=== PATIENT | male | born 1995 | race Two or more races ===

== ENCOUNTER 2016-12-21 17:13 | Inpatient (IN) | payer OTHER ==
[2016-12-21 17:56] LABS: Hematocrit 48 % (42-52); Hemoglobin 16.3 g/dl (14.0-18.0); Mean Corpuscular HGB Conc 34 g/dl (31-36); Mean Corpuscular Hemoglobin 30 pg (27-31); Mean Corpuscular Volume 87 fL (80-94); Mean Platelet Volume 10 um3 (7.4-10.4); Red Blood Count 5.44 10^6/ul (4.0-5.4); Red Cell Distribution Width 13 % (10.5-15); White Blood Count 9.1 10^3/ul (3.5-10.8)
[2016-12-21 17:57] LABS: Urine Bilirubin Negative (Negative); Urine Glucose Negative (Negative); Urine Nitrite Negative (Negative)
[2016-12-21 18:11] LABS: ALT 12 U/L (7-52); AST 16 U/L (13-39); Albumin 5.1 g/dL (3.2-5.2); Alkaline Phosphatase 57 U/L (34-104); Anion Gap 8 mmol/L (2-11); BUN/Creatinine Ratio 24.7 (8-20); Blood Urea Nitrogen 21 mg/dL (6-24); CO2 Carbon Dioxide 26 mmol/L (22-32); Calcium 10.3 mg/dL (8.6-10.3); Chloride 100 mmol/L (101-111); EGFR African American 143.7 (>60); EGFR Non-African American 111.7 (>60); Glucose 92 mg/dL (70-100); Potassium 3.3 mmol/L (3.5-5.0); Sodium 134 mmol/L (133-145); Total Protein 8.1 g/dL (6.4-8.9)
[2016-12-21 18:13] LABS: Benzodiazepine Urine Screen None Detected (None Detect)
[2016-12-21] MEDS ORDERED: Potassium Chlor TAB* 20 MEQ TAB.ER PO ONE (18:19)
[2016-12-21 18:32] LABS: Acetaminophen < 15 mcg/mL; Alcohol < 10 mg/dL (<10); Salicylate < 2.50 mg/dL (<30)
[2016-12-21 18:41] LABS: TSH (Thyroid Stimulating Horm) 1.59 mcIU/mL (0.34-5.60)
--- NOTE | 2016-12-21 21:41 | ED ---
Vashti Cody Matthew, scribed for Dre Manirque on 12/21/16 at 2138 . Progress - Progress Note Progress Note: The patient is a sign out from Dr. Garcia. The patient was evaluated by mental health and he will be admitted into their services. The patient is in stable condition and will be admitted to [facility] - Consult/PCP Time Called: 18:10 Course/Dx - Diagnoses Provider Diagnoses: Depression, Suicidal ideation The documentation as recorded by the Vashti rosado Matthew accurately reflects the service I personally performed and the decisions made by Burton cabrera Emmanuel.
[2016-12-21] MEDS ORDERED: Al Hydrox/Mg Hydrox/Simet LIQ* 30 ML UDC PO PRN (23:41)
[2016-12-21] MEDS ORDERED: Acetaminophen TAB* 325 MG PO PRN (23:41)
[2016-12-22] MEDS: Vitamin THERAPEUTIC TAB PO SCH (09:18)
--- NOTE | 2016-12-22 15:29 | ADMNOTE ---
Identification - Identify Employment Status: Student - [employer] senior. Hx Psychiatric Hospitalization: No Arrived to Hospital Via: Law Enforcement History - Objective HPI: 21 y/o [employer] student with no prior psychiatric history was brought to the ED from [facility] due to suicidal ideation with plans to jump off a bridge or slash his wrist. He has been stressed and overwhelmed at school due to multiple cultural things that he is involved. Also reported that he has been feeling sad ,down and helpless lately. Since last week cries for no reson or for little reason. Denies hallucinations or delusion. Has been drinking every weekend to a point of getting drunk. Exam Appearance: Thin Framed Hygiene: Normal Grooming: Well Kept Psychomotor Activities: Normal Exhibits Abnormal Movement: No Attitude and Relatedness: Manipulative Eye Contact: Fair - Speech Quality: Unpressured Latencies: Normal Quantity: Appropriate Patient's Decription of Mood: "Okay" Observed Affect: Depressed Affect Consistent with: Dysphoria Patient's Thought Process: Coherent, Goal Directed Thought Content: No Passive Wish, No Suicidal Planning, No Homicidal Ideation, No Paranoid Ideation Experiencing Hallucinations: No, Sensorium is Clear Type of Hallucinations: Visual: No, Auditory: No, Command: No Level of Consciousness: Alert Orientation: Yes Intact, Yes Orientated to Time, Yes Orientated to Place, Yes Orientated to Person Impulse Control: Tenuous Insight and Judgement: Poor Impression - Impression Merits Inpatient Hospitalization: Yes - [place] I Mental Illness: Depressive d/o NOS. Alcohol use d/o - [place] III Medical Illness: No Dx Plan - Treatment Plan Continued Medication Management: Consider Medication Medications: Current Medications Acetaminophen (Tylenol Tab*) 650 mg PO Q4H PRN PRN Reason: PAIN or TEMP > 101 F Al Hydrox/Mg Hydrox/Simethicone (Maalox Plus*) 30 ml PO Q4H PRN PRN Reason: INDIGESTION Multivitamins (Theragran Tab*) 1 tab PO DAILY CHERYL Last Admin: 12/22/16 09:18 Dose: Not Given - Discharge Plan Discharge Plan: Outpatient Follow Up Outpatient Program: Counseling/Psych Services at [place]
--- NOTE | 2016-12-22 22:04 | HP ---
HISTORY AND PHYSICAL: DATE OF ADMISSION: IDENTIFYING DATA: David is a 21-year-old [employer] student with no prior history of psychiatric hospitalization or treatment, came to the ED voluntarily with the help of law enforcement, referred to the ED by [facility] counselor, whom he went to see earlier during the day due to repeated thoughts of suicide with multiple plans. CHIEF COMPLAINT: "I have been overwhelmed with school works and other obligations at school as well." HISTORY OF PRESENT ILLNESS: David reports that he has been going through a lot of stress at school because of some social projects that he leads as well as his school work. He found himself to be overwhelmed with all those and could not talk about that with anybody which led to him feeling depressed, sad, occasional crying, lonely, and helpless. About a week ago, during the weekend, after having a green party and drinking alcohol when he was going back to his residence, he became suicidal and wanted to jump off the bridge which he was crossing. While contemplating to jump, somebody found him there and dissuaded him and brought him back to his residence. He talked about that with his roommates, who convinced him to go see a counselor at [facility]. Prior to that, he also thought about cutting his wrist with the kitchen knife to bleed to . He also is complaining that he has been having sleep disturbances intermittently. He has verbalized some ambivalence about suicide or self- harming behaviors during the interview today and trying to justify why he thought the way he thought and denies any current suicidal or homicidal thoughts. He also denies any hallucinations, delusions, or obsessions. PAST PSYCHIATRIC HISTORY: Unremarkable. PAST MEDICAL HISTORY: No physical health issues. ALLERGIES: No known drug allergies. SUBSTANCE ABUSE HISTORY: His main problem with substance abuse is drinking at least once during the weekend while he gets drunk. His preferred alcohol is wine, if he cannot find wine, he drinks at least a couple of beers. He denies any DTs or severe withdrawals or blackouts. In the past, he experimented with hashish, smoked pot, and other street drugs just for experimentation. FAMILY HISTORY: Unremarkable. He has two other brothers, both of them older than him, one lives in [place], other one in [facility]. His parents are well-off , lives in [place]. PERSONAL AND SOCIAL HISTORY: After graduating from [place], he moved to the [facility] to come to [facility] and is doing a undergrad in economics. He is on student visa and planning to obtain H-1B visa to work and maybe already has a job lined up in [place]. No significant relationships at this time. He has few friends. No family members in this area. PHYSICAL EXAMINATION Physical examination was offered, he was emotional and tearful at that time and wanted to defer it for future. However, he is not in any physical distress and I had a chance to review the physical done in the emergency room which is elaborate and insignificant. Everything appears to be in normal range. VITAL SIGNS: Blood pressure 148/70, pulse 73, respirations 18, temperature 99 degrees Fahrenheit, pulse ox 100%. MENTAL STATUS EXAMINATION: Average height, thin-framed, [place] male with fair personal hygiene and grooming, makes good eye contact. Speech is normal in all spheres. Describes his mood as sad. Observed affect appears to be dysphoric and became tearful during the interview. Thought process is logical and goal directed. Thought content is devoid of any delusions, obsessions, and current suicidal or homicidal ideations. Intelligence appears to be average as evidenced by his vocabulary and fund of knowledge. Memory functions are intact in all spheres. Insight and judgment poor. LABORATORY DATA: Labs included CBC with differential, CMP, urinalysis, urine drug scan. WBC 9.1, hemoglobin 16.3, hematocrit 48, MCV 87, platelet count 208. Rest of parameters are within normal limits. Comprehensive metabolic profile shows sodium level of 134; potassium 3.3, slightly lower than normal; chloride 100, which is lower than normal; carbon dioxide 26; BUN 21; creatinine 0.85; GFR 143.7, for non- ,101.7 ( C[place]ro). AST 16, ALT 12. Urinalysis unremarkable. Urine drug screen nothing remarkable, all street drugs were negative. Tox screen, negative. CLINICAL SUMMARY: This 21-year-old [employer] Student with no prior history of psychiatric treatment or diagnosis, regular drinking habits, especially on weekends, overwhelmed with school works as well as cultural works at school became more overwhelmed to a point that he showed some symptoms of depression as well as suicidal ideations with plans. He is not on any treatment or any therapy currently. MENTAL HEALTH DIAGNOSES: 1. Adjustment disorder. 2. Depressed mood, rule out major depressive disorder. PHYSICAL HEALTH DIAGNOSIS: None. TREATMENT PLAN: First of all, we will keep him on involuntary basis for his safety, further evaluation, and treatment plans. Supportive milieu, individual , and group therapy will be initiated and encouraged. He will benefit from treatment with antidepressant. However, at this time, he is declining any offer , although I described different medications with risks, benefits, and alternatives. I would defer the final decision to his assigned psychiatrist on the unit. He also will benefit from at best outpatient drug and alcohol rehab here as well as on an outpatient basis when he is discharged. His family involvement will be crucial in this situation to stop further escalation of his alcohol use. [id number]/CPS #: [id number] ZURDO
[2016-12-23] MEDS: Vitamin THERAPEUTIC TAB PO SCH (09:23)
[2016-12-24] MEDS: Vitamin THERAPEUTIC TAB PO SCH (10:29)
[2016-12-24] MEDS ORDERED: Nicotine Inhaler* 10 MG AMP INH PRN (11:18)
--- NOTE | 2016-12-24 11:18 | PN ---
Subjective - Subjective Service Type: 32735 Hosp care 15 min low complexity Subjective: David reports having only had SI on 2 occasions: (1) On SaturdayDecember 15 when walking over the [place] bridge he contemplated jumping for less than 1 minute when on his way home from a constitution party in [facility], and (2) in the tennis court attendant hours on SaturdayDecember 21, after he had asked roommates to please be quiet so he could get to sleep around 2:30 am, having been up late after a nap earlier that afternoon or evening, he felt isolated and unable to speak with them or other friends or family about the stress he was feeling in his responsibilities as senior class president at [employer] and some other obligations, so contemplated cutting his throat as a means of suicide to escape the feeling of isolation and perhaps also these responsibilities. He is adamant that these were the only 2 times he has ever thought about suicide. He denies any thoughts to harm others. He denies any constellation of depressive symptoms beyond these 2 episodes of SI and feeling isolated when wanting to talk openly about his problems. 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 He prefers his parents not be contacted for fear they will spend $5,000 to needlessly fly here. He agrees to contact with his 30 year-old brother Braulio, his female friend Shreyas, and the therapist he saw at [facility], Abigail Brantley. He has asked for use of his cell phone to call his mother daily for 10 minutes. He has asked to be able to use his laptop to keep up with schoolwork. He says he is only taking 12 credit hours of work and does not feel undue stress from that. He agrees to complete an MMPI. He declines initiating antidepressant medications, which is reasonable given his current clinical picture, which is of a severe stress reaction and not of a mood disorder or other more chronic psychiatric illness. Objective - Appearance Appearance: Healthy Appearing Dysmorphic Features: No Hygiene: Normal Grooming: Well Kept - Behavior Psychomotor Activities: Normal Exhibits Abnormal Movement: No - Attitude and Relatedness Attitude and Relatedness: Well Related Eye Contact: Good - Speech Quality: Unpressured Latencies: Normal Quantity: Appropriate - Mood Patient's Decription of Mood: "Okay" - Affect Observed Affect: Fair Affect Consistent with: Euthymia - Thought Process Patient's Thought Process: Coherent, Goal Directed Thought Content: No Passive Wish, No Suicidal Planning, No Homicidal Ideation, No Paranoid Ideation - Sensorium Experiencing Hallucinations: No, Sensorium is Clear Type of Hallucinations: Visual: No, Auditory: No, Command: No - Level of Consciousness Level of Consciousness: Alert Orientation: Yes Intact, Yes Orientated to Time, Yes Orientated to Place, Yes Orientated to Person - Impulse Control Impulse Control: Intact - Insight and Judgement Insight and Judgement: Fair - Group Participation Particating in Group Activities: No - Medication Management Medication Management Adherence: Yes Assessment - Assessment Merits Inpatient Hospitalization: For Immediate Safety, For Ongoing Evaluation, For Discharge Planning, Pending Safe DC Plan Inpatient DSM-IV Dx: Suicidal Ideation. Adjustment disorder with disturbance of mood. 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 He is from [place]. He reports 2 episodes of SI leading to voluntary assessment at [facility], now assessment here to ensure his safety. He does not give report of depressive or other symptoms beyond those captured by diagnosis with adjustment disorder. He does drink to excess regularly in what he sees as a more or less culturally normative pattern of a senior at [employer], and he denies any hindrance to social or educational responsibilities from alcohol, though notably he had his first episode of SI after drinking at a constitution party. He has declined trial of antidepressant, which per no psychiatric history and denial of depressive symptoms beyond episodic mood disturbance with SI related to feeling isolated from social support is a reasonable choice at this point. He has agreed to gathering collateral report from brother Braulio, friend Shreyas, and crisis counselor at [facility] Abigail Brantley. If collateral and psychological testing does not indicate previously unreported dangerousness, we plan to discharge back to care at [facility] tomorrow. Plan - Plan Treatment Plan: Name: DAVID [place] Birthdate: 1995 [id number] Gather collateral. Monitor MS and safety. MMPI. Encourage groups and milieu. Medications: Current Medications Acetaminophen (Tylenol Tab*) 650 mg PO Q4H PRN PRN Reason: PAIN or TEMP > 101 F Al Hydrox/Mg Hydrox/Simethicone (Maalox Plus*) 30 ml PO Q4H PRN PRN Reason: INDIGESTION Multivitamins (Theragran Tab*) 1 tab PO DAILY CHERYL Last Admin: 12/24/16 10:29 Dose: Not Given - Discharge Plan Discharge Plan: Outpatient Follow Up Outpatient Program: Counseling/Psych Services at [employer]
[2016-12-24] MEDS ORDERED: Mouth Piece, Nicotine* 1 EACH CARTRIDGE INH ONE (11:25)
[2016-12-25] MEDS: Vitamin THERAPEUTIC TAB PO SCH (09:21)
[2016-12-25 09:54] VITALS: BP 132/70
--- NOTE | 2016-12-25 10:44 | DS ---
Subjective - Subjective Service Types: 23570 [facility] Day [facility]mt simple under 30 min Discharge Date: 12/25/16 Subjective: Collateral sources were contacted by the treatment team. We spoke with his friend Porsche, his brother Braulio, and his therapist at [facility] Abigail Brantley. All agreed that David's reports of dangerousness were limited to 2 episodes of thinking of suicide. He has reported that he has not had thoughts of suicide before or after these 2 brief episodes. He reports that he has never developed any intention to act on these plans. He asks for discharge today, had been agreeable to continued observation and psychological testing prior to discharge. He reports feeling 'happy' and denies any dangerous intent or plan or any psychotic symptoms, as he has throughout his hospitalization. He has no physical complaints. Objective - Appearance Appearance: Healthy Appearing Dysmorphic Features: No Hygiene: Normal Grooming: Well Kept - Behavior Psychomotor Activities: Normal Exhibits Abnormal Movement: No - Attitude and Relatedness Attitude and Relatedness: Well Related Eye Contact: Good - Speech Quality: Unpressured Latencies: Normal Quantity: Appropriate - Mood Patient's Decription of Mood: "Happy" - Affect Observed Affect: Good Affect Consistent with: Euthymia - Thought Process Patient's Thought Process: Coherent, Goal Directed Thought Content: No Passive Wish, No Suicidal Planning, No Homicidal Ideation, No Paranoid Ideation - Sensorium Experiencing Hallucinations: No, Sensorium is Clear Type of Hallucinations: Visual: No, Auditory: No, Command: No - Level of Consciousness Level of Consciousness: Alert Orientation: Yes Intact, Yes Orientated to Time, Yes Orientated to Place, Yes Orientated to Person - Impulse Control Impulse Control: Intact - Insight and Judgement Insight and Judgement: Good - Group Participation Particating in Group Activities: Yes - Medication Management Medication Management Adherence: Yes - although has declined antidepressant trial Treatment Course & Assessment Clinical Course & Impression: David is a 21 year-old single man, a senior at [employer], 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 He is from [place]. He reports 2 episodes of SI leading to voluntary assessment at [facility], now assessment here to ensure his safety. He does not give report of depressive or other symptoms beyond those captured by diagnosis with adjustment disorder. He does drink to excess regularly in what he sees as a more or less culturally normative pattern of a senior at [employer], and he denies any hindrance to social or educational responsibilities from alcohol, though notably he had his first episode of SI after drinking at a republican. He has declined trial of antidepressant, which per no psychiatric history and denial of depressive symptoms beyond episodic mood disturbance with SI related to feeling isolated from social support is a reasonable choice at this point. He has agreed to gathering collateral report from brother Braulio, friend Shreyas, and crisis counselor at [facility] Abigail Brantley. If collateral and psychological testing does not indicate previously unreported dangerousness, we plan to discharge back to care at [facility] tomorrow. 12.25.16 MMPI could not be scored as Dr Lutz was not able to come in today due to weather. All collateral sources support David's discharge, all saying they have no concerns for his safety if discharged. He has requested discharge. There is no legal or clinical basis to extend his stay, as he has been consistent in reporting only 2 episodes of thoughts about suicide without any intent to act on those thoughts. He has been in excellent behavioral control and took a collaborative stance with a pleasant attitude through the course of his stay here. Although he declined most formal groups, he was a calm presence on the milieu. All staff observations support the conclusion that he will be safe after discharge. David is cleared for discharge. He can request MMPI results be conveyed to his psychotherapist at [facility] after discharge. We are working on getting him an appointment to see someone at [facility] today, and expect he will follow up at [facility] for psychological counseling. He has declined an antidepressant at this time. Given that his suicidality has been brief and of low intensity, and that he denies any ongoing mood symptoms, this is a reasonable decision to defer medications and instead pursue psychotherapy to develop ways to better manage the stress and sense of isolation that led to his suicidal thoughts without intent. His support system has rallied around him, and he reports that he now feels he has several people to turn to if he feels down or again has thoughts of suicide. He discharges at a lower risk of self-harm due to improved supports and coping strategies. He remains at low chronic risk with strong educational and vocational engagement, strong social supports, and low to nearly absent symptom burden. His prognosis is excellent with engagement in psychotherapy to reduce chronic stress. Merits Inpatient Hospitalization: No Clear for Discharge: Adequate Clinical Respons, Acceptable Safety Profile, Low Utility of Inpt Care Inpatient DSM-IV Dx: Suicidal Ideation. Adjustment disorder with disturbance of mood. Rule out alcohol use disorder - [place] I Mental Illness: Depressive d/o NOS. 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 David chose not to tell parents of his hospitalization until after discharge out of concern they would fly here from [place] in overreaction Primary Support Group: friends at school, brother - [place] V [id number]-Rlaad: 75 Estimate of Highest-Past Year: 80 Discharge Planning - Discharge Planning Discharge Plan: Outpatient Follow Up Outpatient Program: Counseling/Psych Services at [employer] Recommendations for Continuing Care: Psychotherapy Medications: None Discharge Planning: Prescriptions provided for discharge [] Yes [x] No Follow up care details as per social work arrangements. Patient response to discharge plan: [x] eager for discharge [x] agreeable with discharge plan [] ambivalent about discharge [] disagrees with discharge today
--- NOTE | 2016-12-29 21:12 | ED ---
Daniel Cody Billy, scribed for Jhonatan Garcia MD on 12/21/16 at 1747 . 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 He states that he has no history of mental health disorders. However, recently, he has had increased stress from schoolwork and school-related obligations. Six days ago, patient was walking home from a democrat (after consuming some alcohol), and while walking across [facility] on the way back to his apartment, he began to think about jumping from the bridge. He says that he was "scoping" the bridge, trying to reason how he would do it, when somebody stopped him and asked him how he was doing at that time. He states that he realized that what he was doing was wrong, and then "snapped out of it. " He states since then, he has had intermittent sleep disturbance. However, he had no suicidal ideation until last night. He began to feel "anguish and uncertainty," and he began to strangle himself. He then realized that he would be unable to cause himself significant harm in that manner, and then began to think about how to cause himself harm with a kitchen knife. He states that at the thought of the kitchen knife, he again "snapped out of it." He then decided to book an appointment with [facility]en. He denies any prior psychiatric history or significant PMHx. - History Of Current Complaint Chief Complaint: EDMentalHealth Time Seen by Provider: 12/21/16 17:13 Accompanied By: law enforcement Hx Obtained From: Patient Onset/Duration: Gradual Onset, Lasting Days, Still Present Timing: Intermittent Episode Lasting Severity Initially: Moderate Severity Currently: Moderate Character: Depressed Aggravating Factor(s): Recent Stress, Alcohol Use Alleviating Factor(s): Nothing Associated Signs And Symptoms: Positive: Sleep Disturbance Related History: Negative For: Prior Psychiatric Issues Has Suicidal: Reports: Thoughts, With A Plan. Denies: Demonstrates Gesture, Has Prior Attempt(s) Has Homicidal: Denies: Thoughts, With A Plan, Demonstrates Gesture, Has Prior Attempt(s) - Allergies/Home Medications Allergies/Adverse Reactions: Allergies Allergy/AdvReac Type Severity Reaction Status Date / Time No Known Allergies Allergy Verified 12/21/16 18:16 Home Medications: Home Medications Minocycline (NF) 100 mg PO BID 12/21/16 [History Confirmed 12/21/16] PMH/Surg Hx/FS Hx/Imm Hx Endocrine/Hematology History: Denies: Hx Diabetes Cardiovascular History: Denies: Hx Myocardial Infarction Psychiatric History: Denies: Hx Depression - Surgical History Surgery Procedure, Year, and Place: tonsillectomy Infectious Disease History: No Infectious Disease History: Denies: Traveled Outside the [place] in Last 30 Days - Family History Known Family History: Positive: Hypertension, Diabetes - Social History Occupation: Student Alcohol Use: Occasionally Hx Substance Use: No Substance Use Type: Reports: None Hx Tobacco Use: No Smoking Status (MU): Never Smoked Tobacco Review of Systems Negative: Fever Positive: Depressed All Other Systems Reviewed And Are Negative: Yes Physical Exam - Summary Physical Exam Summary: The patient is well-nourished in no acute distress and in no acute pain. The skin is warm and dry and skin color reflects adequate perfusion. HEENT: The head is normocephalic and atraumatic. The pupils are equal and reactive. The conjunctivae are clear and without drainage. Nares are patent and without drainage. Mouth reveals moist mucous membranes and the throat is without erythema and exudate. The external ears are intact. The ear canals are patent and without drainage. The tympanic membranes are intact. Neck is supple with full range of motion and non-tender. There are no carotid bruits. There is no neck vein distension. Respiratory: Chest is non-tender. Lungs are clear to auscultation and breath sounds are symmetrical and equal. Cardiovascular: Hear is regular rate and rhythm. There is no murmur or rub auscultated. There is no peripheral edema and pulses are symmetrical and equal. Abdomen: The abdomen is soft and non-tender. There are normal bowel sounds heard in all four quadrants and there is no organomegaly palpated. Musculoskeletal: There is no back pain noted. Extremities are non-tender with full range of motion. There is good capillary refill. There is no peripheral edema or calf tenderness elicited. Neurological: Patient is alert and oriented to person, place and time. The patient has symmetrical motor strength in all four extremities. Cranial nerves are grossly intact. Deep tendon reflexes are symmetrical and equal in all four extremities. Psychiatric: The patient has an appropriate affect and does not exhibit any anxiety or depression. Triage Information Reviewed: Yes Vital Signs On Initial Exam: Initial Vitals Temp Pulse Resp BP Pulse Ox 99 F 73 18 148/70 100 12/21/16 17:38 12/21/16 17:38 12/21/16 17:38 12/21/16 17:38 12/21/16 17:38 Vital Signs Reviewed: Yes Diagnostics - Vital Signs Vital Signs Temp Pulse Resp BP Pulse Ox 12/21/16 17:38 99 F 73 18 148/70 100 - Laboratory Lab Results: Lab Results 12/21/16 12/21/16 12/21/16 Range/Units 17:39 17:39 17:39 WBC 9.1 (3.5-10.8) 10^3/ul RBC 5.44 H (4.0-5.4) 10^6/ul Hgb 16.3 (14.0-18.0) g/dl Hct 48 (42-52) % MCV 87 (80-94) fL MCH 30 (27-31) pg MCHC 34 (31-36) g/dl RDW 13 (10.5-15) % Plt Count 208 (150-450) 10^3/ul MPV 10 (7.4-10.4) um3 Neut % (Auto) 65.8 (38-83) % Lymph % (Auto) 25.7 (25-47) % [place] % (Auto) 6.4 (1-9) % Eos % (Auto) 0.8 (0-6) % Baso % (Auto) 1.3 (0-2) % Absolute Neuts (auto) 6.0 (1.5-7.7) 10^3/ul Absolute Lymphs (auto) 2.3 (1.0-4.8) 10^3/ul Absolute Monos (auto) 0.6 (0-0.8) 10^3/ul Absolute Eos (auto) 0.1 (0-0.6) 10^3/ul Absolute Basos (auto) 0.1 (0-0.2) 10^3/ul Absolute Nucleated RBC 0.01 10^3/ul Nucleated RBC % 0.1 Sodium 134 (133-145) mmol/L Potassium 3.3 L (3.5-5.0) mmol/L Chloride 100 L (101-111) mmol/L Carbon Dioxide 26 (22-32) mmol/L Anion Gap 8 (2-11) mmol/L BUN 21 (6-24) mg/dL Creatinine 0.85 (0.67-1.17) mg/dL Est GFR ( Amer) 143.7 (>60) Est GFR (Non-Af Amer) 111.7 (>60) BUN/Creatinine Ratio 24.7 H (8-20) Glucose 92 (70-100) mg/dL Calcium 10.3 (8.6-10.3) mg/dL Total Bilirubin 0.90 (0.2-1.0) mg/dL AST 16 (13-39) U/L ALT 12 (7-52) U/L Alkaline Phosphatase 57 (34-104) U/L Total Protein 8.1 (6.4-8.9) g/dL Albumin 5.1 (3.2-5.2) g/dL Globulin 3.0 (2-4) g/dL Albumin/Globulin Ratio 1.7 (1-3) TSH Pending Urine Color Yellow Urine Appearance Clear Urine pH 6.0 (5-9) Ur Specific South Range 1.016 (1.010-1.030) Urine Protein Negative (Negative) Urine Ketones Trace H (Negative) Urine Blood Negative (Negative) Urine Nitrate Negative (Negative) Urine Bilirubin Negative (Negative) Urine Urobilinogen Negative (Negative) Ur Leukocyte Esterase Negative (Negative) Urine Glucose Negative (Negative) Urine Ascorbic Acid * H (Negative) Salicylates Pending Urine Opiates Screen (None Detect) Acetaminophen Pending Ur Barbiturates Screen (None Detect) Ur Phencyclidine Scrn (None Detect) Ur Amphetamines Screen (None Detect) U Benzodiazepines Scrn (None Detect) Urine Cocaine Screen (None Detect) U Cannabinoids Screen (None Detect) Serum Alcohol Pending 12/21/16 Range/Units 17:39 WBC (3.5-10.8) 10^3/ul RBC (4.0-5.4) 10^6/ul Hgb (14.0-18.0) g/dl Hct (42-52) % MCV (80-94) fL MCH (27-31) pg MCHC (31-36) g/dl RDW (10.5-15) % Plt Count (150-450) 10^3/ul MPV (7.4-10.4) um3 Neut % (Auto) (38-83) % Lymph % (Auto) (25-47) % [place] % (Auto) (1-9) % Eos % (Auto) (0-6) % Baso % (Auto) (0-2) % Absolute Neuts (auto) (1.5-7.7) 10^3/ul Absolute Lymphs (auto) (1.0-4.8) 10^3/ul Absolute Monos (auto) (0-0.8) 10^3/ul Absolute Eos (auto) (0-0.6) 10^3/ul Absolute Basos (auto) (0-0.2) 10^3/ul Absolute Nucleated RBC 10^3/ul Nucleated RBC % Sodium (133-145) mmol/L Potassium (3.5-5.0) mmol/L Chloride (101-111) mmol/L Carbon Dioxide (22-32) mmol/L Anion Gap (2-11) mmol/L BUN (6-24) mg/dL Creatinine (0.67-1.17) mg/dL Est GFR ( Amer) (>60) Est GFR (Non-Af Amer) (>60) BUN/Creatinine Ratio (8-20) Glucose (70-100) mg/dL Calcium (8.6-10.3) mg/dL Total Bilirubin (0.2-1.0) mg/dL AST (13-39) U/L ALT (7-52) U/L Alkaline Phosphatase (34-104) U/L Total Protein (6.4-8.9) g/dL Albumin (3.2-5.2) g/dL Globulin (2-4) g/dL Albumin/Globulin Ratio (1-3) TSH Urine Color Urine Appearance Urine pH (5-9) Ur Specific South Range (1.010-1.030) Urine Protein (Negative) Urine Ketones (Negative) Urine Blood (Negative) Urine Nitrate (Negative) Urine Bilirubin (Negative) Urine Urobilinogen (Negative) Ur Leukocyte Esterase (Negative) Urine Glucose (Negative) Urine Ascorbic Acid (Negative) Salicylates Urine Opiates Screen None detected (None Detect) Acetaminophen Ur Barbiturates Screen None detected (None Detect) Ur Phencyclidine Scrn None detected (None Detect) Ur Amphetamines Screen None detected (None Detect) U Benzodiazepines Scrn None detected (None Detect) Urine Cocaine Screen None detected (None Detect) U Cannabinoids Screen None detected (None Detect) Serum Alcohol Result Diagrams: 12/21/16 17:39 12/21/16 17:39 Lab Statement: Any lab studies that have been ordered have been reviewed, and results considered in the medical decision making process. Course/Dx - Course Course Of Treatment: Medically clear for MHE at 1817. 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 He states that he has no history of mental health disorders. However, recently, he has had increased stress from schoolwork and school- related obligations. Six days ago, patient was walking home from a democrat (after consuming some alcohol), and while walking across [facility] [place] on the way back to his apartment, he began to think about jumping from the bridge. He says that he was "scoping" the bridge, trying to reason how he would do it, when somebody stopped him and asked him how he was doing at that time. He states that he realized that what he was doing was wrong, and then "snapped out of it. " He states since then, he has had intermittent sleep disturbance. However, he had no suicidal ideation until last night. He began to feel "anguish and uncertainty," and he began to strangle himself. He then realized that he would be unable to cause himself significant harm in that manner, and then began to think about how to cause himself harm with a kitchen knife. He states that at the thought of the kitchen knife, he again "snapped out of it." He then decided to book an appointment with [facility]en. He denies any prior psychiatric history or significant PMHx. All blood work WNL except for hypokalemia. he was given KCL 40 mEq. He is medically cleared. He is awaiting for a MHE. Patient is hemodynamically stable and A+O x 3. Patient will be signed out to Dr. Manrique for following MHE recommendations. - Differential Dx/Clinical Impression Differential Diagnosis/HQI/PQRI: Positive: Depression, Suicidal Ideation, Suicidal Gesture Provider Diagnosis: Depression, Suicidal ideation Discharge - Discharge Plan Condition: Good Disposition: ADMITTED TO [facility] documentation as recorded by the scribeDaniel Billy accurately reflects the service I personally performed and the decisions made by me, Jhonatan Garcia MD.
== END 2016-12-25 12:00 | disposition home or self-care (01) | DRG 881 ==
LOC: ED 17:13 → BSU 22:30
PROVIDERS: ADMIT Psychiatry & Neurology Psychiatry; ATTEND Psychiatry & Neurology Psychiatry
DX: F43.21 Adjustment disorder with depressed mood (principal); R45.851 Suicidal ideations; F32.9 Major depressive disorder, single episode, unspecified; Z28.21 Immunization not carried out because of patient refusal; Z72.89 Other problems related to lifestyle
CPT/HCPCS: 36415; 80053; 80307; 80320; 80329; 81003; 84443; 85025; 99222; 99231; 99238; A9270-GY; G0480